=== PATIENT | female | born 1985 | race Caucasian/White ===

== ENCOUNTER → 2020-02-02 18:00 | Observation (INO) | END | disposition home or self-care (01) | LOC: 1NENULAB | PROVIDERS: ADMIT Obstetrics & Gynecology; ATTEND Obstetrics & Gynecology ==

== ENCOUNTER 2020-02-09 07:52 | Inpatient (IN) ==
[2020-02-09] MEDS ORDERED: EPHEDrine 50 MG/ML VIAL IVP PRN (10:01)
[2020-02-09] MEDS ORDERED: Epidural Premix (fent/bupiv) 110 ML EP SCH (10:15)
[2020-02-09] MEDS ORDERED: Metoclopramide 10 MG/2 ML VIAL IVP PRN (10:18)
[2020-02-09] MEDS ORDERED: Famotidine 20 MG/2 ML VIAL IVP PRN (10:18)
[2020-02-09] MEDS ORDERED: Ondansetron 4 MG/2 ML VIAL IVP PRN (10:18)
[2020-02-09] MEDS ORDERED: *HR* FentaNYL (PF) 100 MCG/2 ML VIAL IVP PRN (10:18)
[2020-02-09] MEDS ORDERED: Naloxone 0.4 MG/ML INJ IVP PRN (10:18)
[2020-02-09] MEDS ORDERED: Penicillin G Potassium 5,000,000 UNIT in 0.9 % Sodium Chloride Mini Bag 100 ML IVPB ONE (10:20)
[2020-02-09] MEDS ORDERED: Oxytocin 20 units/ LR 1000 mL 20 UNIT/1,000 ML BAG IVC SCH (10:30)
[2020-02-09] MEDS ORDERED: Ringers Solution, Lactated 1,000 ML IVC SCH (10:30)
[2020-02-09 11:02] LABS: Basophils % 0.1 %; Eosinophils # 0.2 K/mcL (0.0-0.6); Eosinophils % 1.9 %; Hematocrit 34.7 % (35.3-44.9); Lymphocytes # 1.7 K/mcL (0.6-4.6); Lymphocytes % 20.2 %; Mean Corpuscular HGB Conc 31.7 g/dL (31.6-35.5); Mean Corpuscular Hemoglobin 29.6 pg (28.0-33.3); Mean Corpuscular Volume 93.3 fL (83.0-100.0); Mean Platelet Volume 12.2 fL (9.4-12.4); Monocytes # 0.8 K/mcL (0.0-1.3); Monocytes % 9.9 %; Neutrophils # 5.6 K/mcL (1.6-8.9); Platelet Count 174 K/mcL (140-400); Red Blood Count 3.72 M/mcL (3.82-4.97); Red Cell Distribution Width 14.2 % (11.5-14.5); Segmented Neutrophils % 66.9 %; White Blood Count 8.4 K/mcL (4.3-11.1)
[2020-02-09] MEDS: Penicillin G Potassium 2,500,000 UNIT in 0.9 % Sodium Chloride 100 ML IVPB SCH ×3 (14:59→23:17)
[2020-02-09] MEDS ORDERED: Ropivacaine/PF 0.2% 20 ML VIAL ONE (16:17)
[2020-02-09] MEDS ORDERED: *HR* FentaNYL (PF) 100 MCG/2 ML VIAL ONE (16:17)
[2020-02-10] MEDS ORDERED: Lanolin 7 G OINT...G. TP PRN (05:47)
[2020-02-10] MEDS ORDERED: Oxytocin 20 units/ LR 1000 mL 20 UNIT/1,000 ML BAG IVC SCH (05:47)
[2020-02-10] MEDS ORDERED: Benzocaine/Menthol 56 GM AEROSOL SPRAY TP PRN (05:47)
[2020-02-10] MEDS ORDERED: Acetaminophen 325 MG TABLET PO PRN (06:00)
[2020-02-10] MEDS: Ibuprofen 600 MG TABLET PO PRN ×3 (06:01→19:54)
[2020-02-10] MEDS: Prenatal Vit/FA 1 EACH TABLET PO SCH (09:11)
[2020-02-11] MEDS: Prenatal Vit/FA 1 EACH TABLET PO SCH (08:25)
[2020-02-11 09:21] LABS: Basophils % 0.3 %; Eosinophils # 0.1 K/mcL (0.0-0.6); Eosinophils % 1.5 %; Hematocrit 31.9 % (35.3-44.9); Hemoglobin 10.3 g/dL (11.5-15.4); Immature Granulocytes % 0.6 % (0-4); Lymphocytes # 1.3 K/mcL (0.6-4.6); Mean Corpuscular HGB Conc 32.3 g/dL (31.6-35.5); Mean Corpuscular Hemoglobin 30.1 pg (28.0-33.3); Mean Corpuscular Volume 93.3 fL (83.0-100.0); Mean Platelet Volume 11.5 fL (9.4-12.4); Monocytes # 0.5 K/mcL (0.0-1.3); Monocytes % 6.5 %; Neutrophils # 5.8 K/mcL (1.6-8.9); Platelet Count 165 K/mcL (140-400); Red Blood Count 3.42 M/mcL (3.82-4.97); Red Cell Distribution Width 14.2 % (11.5-14.5); Segmented Neutrophils % 74.1 %; White Blood Count 7.9 K/mcL (4.3-11.1)
[2020-02-11 09:38] VITALS: BP 114/74
== END 2020-02-11 14:45 | disposition home or self-care (01) | DRG 560 ==
LOC: 1NENULAB 07:52 → 1NENUOBS 02-10 06:20
PROVIDERS: ADMIT Advanced Practice Midwife; ATTEND Advanced Practice Midwife